=== PATIENT | female | born 1935 | race Two or more races ===

== ENCOUNTER 2020-09-29 13:15 | Emergency (ER) | payer OTHER ==
[~2020-09-29] VITALS: Ht 160 cm; Wt 59.0 kg
[2020-09-29] MEDS ORDERED: VITAMIN C500 M6 (13:32)
[2020-09-29] MEDS ORDERED: PRILOSEC OTC20 MG (13:32)
[2020-09-29] MEDS ORDERED: LIPOFLAVINOID (13:33)
[2020-09-29] MEDS ORDERED: ARICEPT10 MG (13:37)
[2020-09-29] MEDS ORDERED: NAMENDA10 MG (13:38)
[2020-09-29] MEDS ORDERED: VITAMIN D 1000 (13:38)
[2020-09-29] MEDS ORDERED: RISPERIDONE O0.25 MG (13:39)
[2020-09-29] MEDS ORDERED: ZOLOFT25 MG (13:39)
[2020-09-29] MEDS ORDERED: BACTRIM DS TAB1 EACH PO (18:52)
== END 2020-09-29 20:43 | disposition home or self-care (01) ==
LOC: ER 13:15
DX: G51.0 Bell's palsy (principal); N39.0 Urinary tract infection, site not specified; G30.8 Other Alzheimer's disease; F02.80 Dementia in other diseases classified elsewhere, unspecified severity, without behavioral disturbance, psychotic disturbance, mood disturbance, and anxiety; Z03.818 Encounter for observation for suspected exposure to other biological agents ruled out